=== PATIENT | male | born 1990 | race Caucasian/White ===

== ENCOUNTER 2017-10-18 18:38 | Emergency (ER) | payer MEDICAID ==
[~2017-10-18] VITALS: Ht 175.3 cm; Wt 79.4 kg
[2017-10-18 18:38] VITALS: BP 125/59
[2017-10-18] MEDS ORDERED: Solu-MEDROL 125mg Inj IVP ONE (19:00)
[2017-10-18] MEDS ORDERED: PREDNISONE20 MG ORAL (19:24)
[2017-10-18] MEDS ORDERED: BENADRYL ALLERG25 M1 PO (19:24)
--- NOTE | 2017-10-18 19:24 | Emergency Room Report ---
History of Present Illness General Chief Complaint: Allergic Reaction Source: Patient Present Illness HPI 19-year-old male, no significant past medical history, presenting with allergic reaction. Patient was at a clinic, received IM ceftriaxone and azithromycin, started to feel very flushed and had a diffuse rash on his body. EMS arrived and stated that his blood pressure was low systolic 80, however patient had no respiratory symptoms, no wheezing, and had and normal O2 sat. No angioedema. Patient felt nausea but no vomiting. Patient denies any history of anaphylaxis in the past, and denies any known history of antibiotic allergies. Patient states that he has received IM ceftriaxone the past and this had not happened Allergies: Coded Allergies: No Known Allergies (Unverified , 10/18/17) Patient History Past Medical History: see triage record Past Surgical History: none Pertinent Family History: none Reviewed Nursing Documentation: PMH: Agreed, PSxH: Agreed Review of Systems All Other Systems: negative except mentioned in HPI Physical Exam Vital Signs Date Time Temp Pulse Resp B/P (MAP) Pulse Ox O2 Delivery O2 Flow Rate FiO2 10/18/17 18:37 98.4 57 18 125/59 99 Room Air Sp02 EP Interpretation: reviewed, normal General Appearance: alert, GCS 15, non-toxic, mild distress Head: normocephalic, atraumatic Eyes: bilateral eye normal inspection, bilateral eye PERRL, bilateral eye EOMI ENT: normal ENT inspection, normal pharynx, no angioedema, normal voice, uvula midline, moist mucus membranes, other - no tonsillar enlargment, no tongue swelling Neck: normal inspection, full range of motion, supple Respiratory: normal inspection, lungs clear, normal breath sounds, no respiratory distress, no retraction, no wheezing, speaking full sentences, chest symmetrical Cardiovascular #1: normal inspection, regular rate, rhythm, no edema, normal capillary refill Cardiovascular #2: 2+ radial (R), 2+ radial (L) Gastrointestinal: normal inspection, non tender, soft, non-distended, no guarding Musculoskeletal: normal inspection, back normal, normal range of motion, non- tender Neurologic: normal inspection, alert, oriented x3, responsive, motor strength/ tone normal, sensory intact, normal gait, speech normal Psychiatric: normal inspection, judgement/insight normal, memory normal Skin: warm/dry, well hydrated, normal turgor, other - erythema noted to hands, feet, legs Medical Decision Making Diagnostic Impression: Primary Impression: Allergic reaction ER Course 27-year-old male with allergic reaction Likely 2/2 to IM ceftriaxone Plan: Benadryl already given by EMS, pepcid, steroids No epi is required at this time ER course: Pt given meds with resolution of symptoms. Overall condition has improved. No respiratory symptoms or angioedema. Disposition: Patient is to be discharged to home with prescription of benadryl and steroids Strict return precautions to the ED discussed with patient including worsening/ persistent symptoms, throat swelling, or shortness of breath, which may indicate severe illness. Patient verbalized understanding. Patient is to follow up with their primary care doctor within 5 days. Patient agrees with plan. Rhythm Strip EP Interpretation: Yes Rate: 80 Rhythm: NSR, no PVCs, no ectopy Last Vital Signs Date Time Temp Pulse Resp B/P (MAP) Pulse Ox O2 Delivery O2 Flow Rate FiO2 10/18/17 18:37 98.4 57 18 125/59 99 Room Air Disposition: HOME, SELF-CARE Condition: Improved Scripts Prednisone* (PREDNISONE*) 20 Mg Tablet 40 MG ORAL DAILY for 4 Days, #8 TAB 0 Refills Prov: Moe Jarrett M.D. 10/18/17 Diphenhydramine Hcl (BENADRYL ALLERGY) 25 Mg Tablet 25 MG PO Q6H Y for Itching for 7 Days, #30 TAB 0 Refills Prov: Moe Jarrett M.D. 10/18/17 Patient Instructions: Drug Allergy, [id number] Moe Jarrett M.D. Oct 18, 2017 19:24
[2017-10-18 20:15] VITALS: BP 125/59
== END 2017-10-18 20:15 | disposition home or self-care (01) ==
LOC: EDBD 18:38 → EMR 19:08
DX: T78.40XA Allergy, unspecified, initial encounter (principal); X58.XXXA Exposure to other specified factors, initial encounter; R21 Rash and other nonspecific skin eruption; R23.2 Flushing
CPT/HCPCS: 96361; 96374; 96375; 99284; J2930; S0028